=== PATIENT | female | born 1975 | race Hispanic/Latino ===

== ENCOUNTER 2018-01-28 09:17 | Emergency (ER) | payer BC, SELFPAY | END 2018-01-28 10:54 | disposition home or self-care (01) | LOC: ERS 09:17 | DX: H10.503 Unspecified blepharoconjunctivitis, bilateral (principal) | CPT/HCPCS: 99283 ==

== ENCOUNTER 2018-09-23 20:31 | Emergency (ER) | payer SELFPAY | END 2018-09-23 21:47 | disposition left against medical advice (07) | LOC: ERS 20:31 | DX: Z53.21 Procedure and treatment not carried out due to patient leaving prior to being seen by health care provider (principal) ==

== ENCOUNTER 2021-05-11 09:36 | Emergency (ER) | payer BC, OTHER | END 2021-05-11 10:35 | disposition home or self-care (01) | LOC: ERS 09:36 | DX: B34.9 Viral infection, unspecified (principal); I10 Essential (primary) hypertension; Z79.899 Other long term (current) drug therapy | CPT/HCPCS: 99283 ==

== ENCOUNTER 2023-02-12 17:25 | Emergency (ER) | payer BC ==
[2023-02-12] MEDS ORDERED: Ibuprofen 200 MG TAB ONE (18:34)
[2023-02-12 19:06] LABS: SARS-CoV-2 NAA Rapid Test DETECTED (NotDetected)
[2023-02-12] MEDS ORDERED: Acetaminophen 500 MG TAB ONE (19:32)
== END 2023-02-12 22:15 | disposition home or self-care (01) ==
LOC: ERS 17:25
DX: U07.1 COVID-19 (principal); I10 Essential (primary) hypertension
CPT/HCPCS: 71046; 96360; 96361

== ENCOUNTER 2023-04-15 18:24 | Emergency (ER) | payer BC | END 2023-04-15 19:40 | disposition home or self-care (01) | LOC: ERS 18:24 | DX: S63.502A Unspecified sprain of left wrist, initial encounter (principal); S20.224A Contusion of middle back wall of thorax, initial encounter; S60.512A Abrasion of left hand, initial encounter; I10 Essential (primary) hypertension; X99.0XXA Assault by sharp glass, initial encounter | CPT/HCPCS: 72072 ==